=== PATIENT | female | born 2000 | race Caucasian/White ===

== ENCOUNTER 2024-06-30 22:21 | Emergency (ER) | payer OTHER ==
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
[2024-06-30 22:47] VITALS: RESP 19; TEMP 97.4
[2024-06-30 23:26] LABS: HCG URINE TEST NEGATIVE (NEGATIVE)
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
[2024-07-01 00:36] VITALS: O2SAT 97
[2024-07-01 00:40] VITALS: BP 106/87; PULSE 88
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
== END 2024-07-01 00:47 | disposition home or self-care (01) ==
LOC: ED 22:21
DX: M54.2 Cervicalgia (principal); M25.512 Pain in left shoulder; S00.212A Abrasion of left eyelid and periocular area, initial encounter; V89.2XXA Person injured in unspecified motor-vehicle accident, traffic, initial encounter
CPT/HCPCS: 70450; 71046; 72125; 73030; 81025; 99285